=== PATIENT | female | born 1970 | race Caucasian/White ===

== ENCOUNTER 2018-01-06 12:08 | Emergency (ER) | payer OTHER ==
[2018-01-06] MEDS: ACETAMINOPHEN 500 MG TAB PO (14:22)
[2018-01-06] MEDS: IBUPROFEN 600 MG TAB PO (14:22)
[2018-01-06] MEDS: SOD CHLORIDE 0.9% 1,000 ML IV (14:25)
[2018-01-06 14:39] LABS: ADD MAN DIFF? NO
[2018-01-06 14:44] LABS: WHITE BLOOD COUNT 8.2 10^3/ul (4.8-10.8)
[2018-01-06 14:44] LABS: BASOPHILS % 0.4 % (0.0-2.0); EOSINOPHILS % 0.2 % (0.0-7.0); HEMATOCRIT 40.6 % (37.0-47.0); HEMOGLOBIN 13.8 g/dl (12.0-16.0); LYMPHOCYTES # 1.6 10^3/ul (0.8-2.9); LYMPHOCYTES % 19.1 % (15.0-51.0); MEAN CORPUSCULAR HEMOGLOBIN 29.2 pg (29.0-33.0); MEAN PLATELET VOLUME 10.8 fl (7.4-10.4); MONOCYTE # 0.9 10^3/ul (0.3-0.9); MONOCYTES % 10.3 % (0.0-11.0); NEUTROPHIL # 5.7 10^3/ul (1.6-7.5); NEUTROPHILS % 69.3 % (39.0-77.0); PLATELET COUNT 231 10^3/UL (140-415); RED BLOOD COUNT 4.72 10^6/ul (4.20-5.40)
[2018-01-06 14:53] LABS: ADD UMIC YES; UR ASCORBIC ACID NEGATIVE (NEGATIVE); UR BACTERIA MANY /HPF (NONE SEEN); UR BILIRUBIN (Dip) NEGATIVE (NEGATIVE); UR BLOOD (Dip) 1+ mg/dL (NEGATIVE); UR BUDDING YEAST FEW /HPF (NONE SEEN); UR CLARITY CLOUDY (CLEAR); UR COLOR AMBER (YELLOW); UR GLUCOSE (Dip) NEGATIVE (NEGATIVE); UR KETONES (Dip) 1+ mg/dL (NEGATIVE); UR LEUKOCYTE ESTERASE (Dip) 2+ Leu/ul (NEGATIVE); UR MUCUS MANY /HPF (NONE SEEN); UR NITRITE (Dip) POSITIVE (NEGATIVE); UR NONSQUAMOUS EPITHELIAL CELL 1 /HPF (NONE SEEN); UR RBC 12 /HPF (0-5); UR SPECIFIC GRAVITY (Dip) 1.017 (1.003-1.030); UR SQUAMOUS EPITHELIAL CELL FEW /HPF (FEW); UR TOTAL PROTEIN (Dip) 1+ mg/dl (NEGATIVE); UR UROBILINOGEN (Dip) 2+ mg/dL (NEGATIVE); UR WBC 38 /HPF (0-5)
[2018-01-06 15:01] LABS: LACTIC ACID 0.9 mmol/L (0.5-2.0)
[2018-01-06 15:03] LABS: ALANINE AMINOTRANSFERASE 88 IU/L (13-69); ALBUMIN 4.2 g/dl (3.3-4.9); ALBUMIN/GLOBULIN RATIO 1.31; ALKALINE PHOSPHATASE 174 IU/L (42-121); ANION GAP 12 (8-16); ASPARTATE AMINO TRANSFERASE 78 IU/L (15-46); BILIRUBIN,INDIRECT 0.6 mg/dl (0-1.1); BILIRUBIN,TOTAL 0.6 mg/dl (0.2-1.3); BLOOD UREA NITROGEN 13 mg/dl (7-20); CALCIUM 9.1 mg/dl (8.4-10.2); CARBON DIOXIDE 25 mmol/L (21-31); CHLORIDE 103 mmol/L (97-110); CREATININE 0.78 mg/dl (0.44-1.00); GLUCOSE 114 mg/dl (70-220); SODIUM 136 mmol/L (135-144); TOTAL PROTEIN 7.4 g/dl (6.1-8.1)
[2018-01-06] MEDS: SOD CHLORIDE 0.9% 500 ML IV (16:10)
[2018-01-06] MEDS: CEFTRIAXONE 1 GM/50 ML (PMX) 50 ML IVPB (16:10)
[2018-01-06 16:16] LABS: AMYLASE 40 U/L (11-123)
[2018-01-06 16:16] LABS: LIPASE 46 U/L (23-300)
== END 2018-01-06 17:05 | disposition home or self-care (01) ==
LOC: FTE 12:08
DX: N39.0 Urinary tract infection, site not specified (principal)
CPT/HCPCS: 71046; 80053; 81001; 81025; 82150; 83605; 83690; 85025; 87040; 87086; 96374; 99284-25